=== PATIENT | male | born 1965 | race Caucasian/White ===

== ENCOUNTER 2018-01-17 05:17 | Inpatient (IN) | payer MEDICARE, OTHER ==
[~2018-01-17] VITALS: Ht 177.8 cm; Wt 112.5 kg
--- NOTE | 2018-01-17 05:19 | NUR ---
PT BIB [facility]. PER PT AND PAREMEDICS, PT WAS IN CAR ON WAY TO DIALYSIS, BUT WAS UNABLE TO GET OUT OF THE CAR, STATING HE FELT WEAK. THE PT THEN CALLED 911. PT PRESENTS W/ BLE WEAKNESS AND SWELLING.
--- NOTE | 2018-01-17 05:22 | NUR ---
DR ARNALDO FALCON MD AT BEDSIDE FOR MSE.
[2018-01-17] MEDS ORDERED: CARBIDOPA PO (05:42)
[2018-01-17] MEDS ORDERED: BUME2TAB3 PO (05:42)
[2018-01-17] MEDS ORDERED: AMIT10TA6 PO (05:42)
[2018-01-17] MEDS ORDERED: GUAI600T53 PO (05:42)
[2018-01-17] MEDS ORDERED: TOLV30TA PO (05:42)
--- NOTE | 2018-01-17 05:42 | NUR ---
PATIENT UNABLE TO RECALL ALL HOME MEDICATIONS AND DOSAGES AT THIS TIME
[2018-01-17 05:43] LABS: BASOPHILS # (AUTO) 0.1 K/uL (0.0-8.0); EOSINOPHILS # (AUTO) 0.1 K/uL (0.0-0.7); EOSINOPHILS % (AUTO) 0.8 % (0.0-7.0); HEMATOCRIT 25.4 % (36.7-47.1); HEMOGLOBIN 8.6 g/dL (12.5-16.3); LYMPHOCYTES # (AUTO) 0.3 K/uL (20.0-40.0); LYMPHOCYTES % (AUTO) 4.2 % (20.5-51.5); MEAN CORPUSCULAR HEMOGLOBIN 33.5 uug (23.8-33.4); MEAN CORPUSCULAR HGB CONC 34 g/dL (32.5-36.3); MONOCYTES # (AUTO) 0.7 K/uL (2.0-10.0); NEUTROPHILS # (AUTO) 5.5 K/uL (1.8-8.9); PLATELET COUNT (AUTO) 127 K/uL (152-348); RED BLOOD CELL COUNT(AUTO) 2.57 MIL/uL (4.06-5.63); WHITE BLOOD COUNT (AUTO) 6.5 K/uL (3.6-10.2)
[2018-01-17 05:57] LABS: BILIRUBIN,DIRECT 0.5 mg/dL (0.0-0.2); BILIRUBIN,TOTAL 1.4 mg/dL (0.2-1.0); CREATININE 6.7 mg/dL (0.6-1.3); TOTAL PROTEIN, SERUM 7.8 g/dL (6.4-8.2)
[2018-01-17 06:03] LABS: POTASSIUM 6.7 mmol/L (3.5-5.1)
--- NOTE | 2018-01-17 06:04 | NUR ---
[facility] PAGED FOR PANEL. WAS TOLD MARIYA SMITH WILL CALL BACK.
[2018-01-17] MEDS ORDERED: SODIUM BICARBONATE 8.4% 50 MEQ/50 ML DISP.SYRIN IV ONE ×2 (06:15→06:19)
[2018-01-17] MEDS ORDERED: CALCIUM GLUCONATE IV 1 GM in IV DEXTROSE 5% 50 ML IV ONE (06:15)
[2018-01-17] MEDS ORDERED: INSULIN REGULAR, HUMAN 300 UNIT/3 ML VIAL IV ONE (06:15)
[2018-01-17] MEDS ORDERED: SODIUM POLYSTYRENE SULFONATE 15 G/60 ML LIQUID UDC PO ONE (06:15)
[2018-01-17] MEDS ORDERED: SODIUM POLYSTYRENE SULFONATE 15 G/60 ML LIQUID UDC ONE (06:19)
[2018-01-17] MEDS ORDERED: CALCIUM GLUCONATE 1 GM/10 ML VIAL IV ONE (06:19)
[2018-01-17] MEDS ORDERED: INSULIN REGULAR, HUMAN 300 UNIT/3 ML VIAL ONE (06:20)
--- NOTE | 2018-01-17 06:30 | NUR ---
Dr. Carreno on panel call with Renae Perez NP.
[2018-01-17] MEDS ORDERED: MAGNESIUM HYDROXIDE 30 ML LIQUID UDC PO PRN (06:45)
[2018-01-17] MEDS ORDERED: ACETAMINOPHEN 325 MG TABLET PO PRN (06:45)
[2018-01-17] MEDS ORDERED: Z GUARD REMEDY PASTE 57 GM TUBE TOP PRN (06:45)
[2018-01-17] MEDS ORDERED: ENOXAPARIN SODIUM 30 MG/0.3 ML DISP.SYRIN SQ SCH (06:45)
[2018-01-17] MEDS ORDERED: ONDANSETRON 4 MG/2 ML VIAL IV PRN (06:45)
--- NOTE | 2018-01-17 07:17 | NUR ---
Recieved pt in bed. no c/o pain, SOB at this time.
[2018-01-17 07:27] LABS: CREATININE 6.9 mg/dL (0.6-1.3)
[2018-01-17 07:31] LABS: POTASSIUM 6.7 mmol/L (3.5-5.1)
--- NOTE | 2018-01-17 07:42 | NUR ---
Patient is resting comfortably in bed with eyes closed, NAD noted.
--- NOTE | 2018-01-17 08:05 | NUR ---
ADMITTED FROM ER VIA RNEY WITH ADM DX HYPERKALEMIA AND HYPONATREMIA, AWAKE ALERT AND APPROPRIATE RESPONSES, VERY WEAK LOOKING AND SOB ON EXERTION. PCO2 WITH ABG 63.1 O2 2L NC STARTED. JUNCTIONAL AT A RATE OF 48 WITH BUNDLE BRANCH ON MONITOR. HEMODIALYSIS STARTED WITH CLOSE MONITORING. HOSPITALIST IN AND NOTED LABS WILL FOLLOW-UP PATIENT. DR BRUNO IN THE CASE AND WANTS STAT CMP 2HRS POST HD.
[2018-01-17 08:15] VITALS: BP 96/46
[2018-01-17 09:17] LABS: ABG BASE EXCESS -3.4 mmol/L; ABG HCO3 21.3 mmol/L; ABG PH 7.379 (7.350-7.450); ABG PO2 63.1 mmHg (75.0-100.0); ABG SITE RIGHT RADIAL; ABG TOTAL HEMOGLOBIN 9.2 G/dL (13.5-18.0); COHb 2.2 % (0.5-1.5); MetHb 0.3 % (0.0-1.5); O2Hb 88.8 % (94.0-97.0); VENT MODE ROOM AIR
[2018-01-17 11:50] VITALS: BP 124/55
[2018-01-17] MEDS: PANTOPRAZOLE SODIUM 40 MG TABLET.DR PO SCH (13:16)
[2018-01-17] MEDS: HEPARIN SODIUM,PORCINE 5,000 UNITS/ML VIAL SQ SCH ×2 (13:17→21:00)
[2018-01-17 13:37] LABS: CREATININE 5.3 mg/dL (0.6-1.3); POTASSIUM 4.5 mmol/L (3.5-5.1)
[2018-01-17] MEDS: HYDROCODONE/APAP 5-325MG TABLET PO PRN ×2 (13:37→17:06)
[2018-01-17] MEDS: MIDODRINE HCL 2.5 MG TABLET PO SCH ×2 (13:38→21:00)
[2018-01-17 13:42] LABS: TOTAL PROTEIN, SERUM 7.3 g/dL (6.4-8.2)
--- NOTE | 2018-01-17 14:11 | NUR ---
WOUND CARE CONSULT: PT RELUCTANT TO HAVE BILATERAL COBAN DRESSINGS REMOVED AT THIS TIME. PT HAS DRY/INTACT COBAN DRESSINGS TO FEET. SIGNS OF PREVIOUS TOE AMPUTATIONS NOTED. PT IS AMBULATORY AND CONTINENT. RECOMMEND DPM CONSULT. PT STATES IS SEEN AT HOME BY WOUND P.A. WILL SEE PRN.
[2018-01-17] MEDS ORDERED: AMIO200T2 PO (15:12)
[2018-01-17] MEDS ORDERED: METO10TA8 PO (15:12)
[2018-01-17] MEDS ORDERED: ROSU20TA PO (15:18)
[2018-01-17] MEDS ORDERED: FOLI0.8T2 PO (15:18)
[2018-01-17] MEDS ORDERED: LEVO150T PO (15:18)
[2018-01-17] MEDS ORDERED: CARV3.122 PO (15:18)
[2018-01-17] MEDS ORDERED: ZONI25CA3 PO (15:45)
[2018-01-17] MEDS ORDERED: ROPI0.5T PO (15:45)
[2018-01-17] MEDS ORDERED: TRAM50TA2 PO (15:45)
[2018-01-17] MEDS ORDERED: GABA-534 PO (15:47)
[2018-01-17] MEDS ORDERED: MIDO10TA PO (15:47)
[2018-01-17] MEDS ORDERED: CALC667C6 PO (15:49)
[2018-01-17] MEDS ORDERED: VITA-85A PO (15:51)
[2018-01-17 16:00] VITALS: BP 113/53
[2018-01-17] MEDS ORDERED: ALLO100T PO (16:00)
[2018-01-17] MEDS ORDERED: LINA5TAB PO (16:00)
[2018-01-17] MEDS ORDERED: CARB-93 PO (16:12)
[2018-01-17] MEDS ORDERED: TRAMADOL HCL 50 MG TABLET PO PRN (17:45)
[2018-01-17] MEDS ORDERED: ZONISAMIDE 25 MG PO PRN (17:45)
--- NOTE | 2018-01-17 17:56 | NUR ---
SEEN BY DR TAYLOR FOR WOUND CONSULT AND DR FINN FOR CARDIOLOGY CONSULT PLS SEE NOTES
[2018-01-17 19:36] VITALS: BP 113/50
--- NOTE | 2018-01-17 19:45 | NUR ---
PT RECEIVED RESTING IN BED. NO COMPLAINTS AT THIS TIME. PT REPORT RECEIVED.
[2018-01-17] MEDS: DOCUSATE SODIUM 100 MG CAPSULE PO SCH (20:55)
[2018-01-17] MEDS: CARBIDOPA/LEVODOPA 25-100MG TABLET PO SCH (20:55)
[2018-01-17] MEDS: HYDROCODONE/APAP 10-325 MG TABLET PO PRN (20:56)
--- NOTE | 2018-01-17 21:09 | NUR ---
HEPARIN WAS NOT ADMINISTERED DUE TO LOW PLATELET COUNT.
[2018-01-17] MEDS: ropiniROLE 0.5 MG TABLET PO PRN (21:30)
[2018-01-17 23:34] VITALS: BP 112/51
--- NOTE | 2018-01-17 23:47 | NUR ---
NO WOUND PHOTOS TAKEN. PT REFUSED TO REMOVE WOUND DRESSING, REQUESTS TO WAIT UNTIL WOUND MD SEES HIM. BILATERAL FEET STILL WRAPPED IN COBAND. NO DRAINAGE OR ODOR NOTED AT THIS TIME. UPON VISUAL INSPECTION, SECOND DIGIT ON LEFT FOOT MISSING. Addendum: 01/18/18 at 0229 by YANET REYNOLDS RN SECOND AND THIRD DIGITS ON LEFT FOOT AMPUTATED.
[2018-01-18] MEDS ORDERED: BUDESONIDE 0.25 MG/2 ML NEBU NEB PRN
[2018-01-18] MEDS: HYDROCODONE/APAP 10-325 MG TABLET PO PRN ×5 (02:18→20:48)
[2018-01-18] MEDS ORDERED: ALBUTEROL SULFATE 2.5 MG/ 0.5 ML NEBU NEB PRN (02:45)
[2018-01-18] MEDS ORDERED: IPRATROPIUM BROMIDE 0.5 MG/2.5 ML NEBU NEB PRN (02:45)
[2018-01-18 03:37] VITALS: BP 118/55
[2018-01-18] MEDS: MIDODRINE HCL 2.5 MG TABLET PO SCH ×4 (05:10→22:00)
[2018-01-18] MEDS: ropiniROLE 0.5 MG TABLET PO PRN ×4 (05:13→23:40)
[2018-01-18] MEDS: PANTOPRAZOLE SODIUM 40 MG TABLET.DR PO SCH (06:16)
[2018-01-18] MEDS: LEVOTHYROXINE SODIUM 150 MCG TABLET PO SCH (06:16)
--- NOTE | 2018-01-18 06:30 | NUR ---
HD NURSE ARRIVED. PT STABLE AT THIS TIME. HD NURSE WITH PATIENT
--- NOTE | 2018-01-18 07:37 | NUR ---
Received report from outgoing nurse. Patient resting in bed sleeping. Currently receiving Hemodialysis. No apparent distress.
[2018-01-18 07:54] LABS: BASOPHILS % (AUTO) 1.4 % (0.0-2.0); EOSINOPHILS # (AUTO) 0.1 K/uL (0.0-0.7); EOSINOPHILS % (AUTO) 2.1 % (0.0-7.0); HEMATOCRIT 22.6 % (36.7-47.1); HEMOGLOBIN 7.7 g/dL (12.5-16.3); LYMPHOCYTES # (AUTO) 0.2 K/uL (20.0-40.0); LYMPHOCYTES % (AUTO) 5.5 % (20.5-51.5); MEAN CORPUSCULAR HEMOGLOBIN 33.8 uug (23.8-33.4); MEAN CORPUSCULAR HGB CONC 34 g/dL (32.5-36.3); MEAN CORPUSCULAR VOLUME 99.3 fL (73.0-96.2); MONOCYTES # (AUTO) 0.4 K/uL (2.0-10.0); MONOCYTES % (AUTO) 13.2 % (0.0-11.0); NEUTROPHILS # (AUTO) 2.2 K/uL (1.8-8.9); NEUTROPHILS % (AUTO) 77.8 % (38.5-71.5); PLATELET COUNT (AUTO) 104 K/uL (152-348); WHITE BLOOD COUNT (AUTO) 2.9 K/uL (3.6-10.2)
[2018-01-18 08:10] LABS: RED BLOOD CELL COUNT(AUTO) 2.27 MIL/uL (4.06-5.63)
[2018-01-18 08:33] LABS: THYROID STIMULATING HORMONE 0.341 mIU/mL (0.358-3.740)
[2018-01-18 08:45] LABS: CREATININE 5.5 mg/dL (0.6-1.3); MAGNESIUM 1.9 mg/dL (1.8-2.4); PHOSPHOROUS 4.8 mg/dL (2.5-4.9); POTASSIUM 3.6 mmol/L (3.5-5.1)
[2018-01-18] MEDS ORDERED: TOLVAPTAN 30 MG PO SCH (09:00)
--- NOTE | 2018-01-18 09:15 | NUR ---
Hemodialysis completed at 9:30am. Patient had 5000mls of fluids removed. VS stable. In no distress.
[2018-01-18] MEDS: FOLIC ACID/VITAMIN B COMP W-C TABLET PO SCH (09:45)
[2018-01-18] MEDS: CARVEDILOL 3.125 MG TABLET PO SCH ×2 (09:45→16:50)
[2018-01-18] MEDS: GABAPENTIN 300 MG CAPSULE PO SCH (09:46)
[2018-01-18] MEDS: CALCIUM ACETATE 667 MG CAPSULE PO SCH ×2 (09:46→16:47)
[2018-01-18] MEDS: ASPIRIN EC 81 MG TABLET.DR PO SCH (09:46)
[2018-01-18] MEDS: LINAGLIPTIN 5 MG TABLET PO SCH (09:46)
[2018-01-18] MEDS: AMIODARONE HCL 200 MG TABLET PO SCH (09:47)
[2018-01-18] MEDS: ALLOPURINOL 100 MG TABLET PO SCH (09:47)
[2018-01-18] MEDS: HEPARIN SODIUM,PORCINE 5,000 UNITS/ML VIAL SQ SCH ×2 (09:50→19:59)
[2018-01-18 09:58] LABS: NEUTROPHILS % (MANUAL) 78 % (42-75)
[2018-01-18 09:59] LABS: EOSINOPHILS % (MANUAL) 2 % (0-8); LYMPHOCYTES % (MANUAL) 7 % (20-40); MONOCYTES % (MANUAL) 13 % (2-10)
--- NOTE | 2018-01-18 11:00 | NUR ---
Patient complaied of pain. Pain medication administered and effective. No distress noted.
[2018-01-18 11:27] LABS: *BLOOD, URINE Trace-intact (NEGATIVE); *CLARITY,URINE CLEAR (CLEAR); *COLOR,URINE YELLOW (YELLOW); *KETONES,URINE 1+ (NEGATIVE); *PROTEIN,URINE 1+ (NEGATIVE); *UROBILINOGEN,URINE 0.2 E.U./dl (NORMAL); LEUKOCYTE ESTERASE ,URINE NEGATIVE (NEGATIVE); NITRITE, URINE NEGATIVE (NEGATIVE); PH,URINE 5.5 (5.0-8.0); UGLUCOSE NEGATIVE (NEGATIVE)
[2018-01-18 11:32] VITALS: BP 110/53
[2018-01-18 11:36] LABS: *BILIRUBIN,URIN 2+ (NEGATIVE)
[2018-01-18 11:38] LABS: BACTERIA,URINE FEW /HPF (NONE SEEN); RBC,URINE NONE SEEN /HPF (0-3); SQUAMOUS EPITHELIAL CELL,UR FEW /HPF (NONE SEEN)
--- NOTE | 2018-01-18 12:00 | NUR ---
Patient requested Requip for restless legs in anticipation of wound care. In good spirits and asking questions about his care.
[2018-01-18] MEDS: VITAMIN B COMPLEX 1 TABLET PO SCH (13:56)
[2018-01-18 15:41] VITALS: BP 113/60
[2018-01-18 15:51] LABS: BILIRUBIN,DIRECT 0.2 mg/dL (0.0-0.2); BILIRUBIN,TOTAL 0.5 mg/dL (0.2-1.0)
[2018-01-18] MEDS: SODIUM HYPOCHLORITE 0.125% 473 ML BOTTLE TP SCH (16:45)
[2018-01-18] MEDS: BUMETANIDE 1 MG TABLET PO SCH (16:47)
--- NOTE | 2018-01-18 16:56 | NUR ---
Pain medication administered. Wound care provided with the assistance of wound care nurse. Medication effective in managing pain during wound care. All wounds photographed. Patient resting in bed in no distress
[2018-01-18] MEDS ORDERED: PATIENT MAY USE OWN MED- MD OK XX SCH (17:00)
[2018-01-18 18:36] LABS: HEMATOCRIT 24.6 % (36.7-47.1); HEMOGLOBIN 8.2 g/dL (12.5-16.3)
[2018-01-18 19:00] VITALS: BP 109/46
[2018-01-18] MEDS: DOCUSATE SODIUM 100 MG CAPSULE PO SCH (20:00)
[2018-01-18] MEDS: CARBIDOPA/LEVODOPA 25-100MG TABLET PO SCH (20:00)
[2018-01-18] MEDS: MUPIROCIN 2% OINT 22 GM TUBE TP SCH (20:00)
[2018-01-18] MEDS ORDERED: BENZONATATE 100 MG CAPSULE PO ONE (21:30)
[2018-01-19] MEDS: HYDROCODONE/APAP 10-325 MG TABLET PO PRN ×5 (01:03→22:03)
[2018-01-19 04:00] VITALS: BP 118/56
[2018-01-19] MEDS: LEVOTHYROXINE SODIUM 150 MCG TABLET PO SCH (06:19)
[2018-01-19] MEDS: PANTOPRAZOLE SODIUM 40 MG TABLET.DR PO SCH (06:19)
[2018-01-19] MEDS: ropiniROLE 0.5 MG TABLET PO PRN ×3 (06:19→23:27)
[2018-01-19 06:50] LABS: BASOPHILS # (AUTO) 0.1 K/uL (0.0-8.0); BASOPHILS % (AUTO) 2.2 % (0.0-2.0); EOSINOPHILS # (AUTO) 0.1 K/uL (0.0-0.7); EOSINOPHILS % (AUTO) 4.1 % (0.0-7.0); HEMATOCRIT 23.3 % (36.7-47.1); HEMOGLOBIN 7.9 g/dL (12.5-16.3); LYMPHOCYTES # (AUTO) 0.3 K/uL (20.0-40.0); LYMPHOCYTES % (AUTO) 12.1 % (20.5-51.5); MEAN CORPUSCULAR HEMOGLOBIN 33.7 uug (23.8-33.4); MEAN CORPUSCULAR HGB CONC 34 g/dL (32.5-36.3); MEAN CORPUSCULAR VOLUME 99.8 fL (73.0-96.2); MONOCYTES # (AUTO) 0.4 K/uL (2.0-10.0); MONOCYTES % (AUTO) 18.5 % (0.0-11.0); NEUTROPHILS # (AUTO) 1.5 K/uL (1.8-8.9); NEUTROPHILS % (AUTO) 63.1 % (38.5-71.5); PLATELET COUNT (AUTO) 98 K/uL (152-348); WHITE BLOOD COUNT (AUTO) 2.4 K/uL (3.6-10.2)
[2018-01-19 06:53] LABS: RED BLOOD CELL COUNT(AUTO) 2.33 MIL/uL (4.06-5.63)
[2018-01-19] MEDS: MIDODRINE HCL 2.5 MG TABLET PO SCH ×3 (07:00→23:29)
[2018-01-19 07:03] LABS: BILIRUBIN,DIRECT 0.2 mg/dL (0.0-0.2); BILIRUBIN,TOTAL 0.7 mg/dL (0.2-1.0); CREATININE 4.4 mg/dL (0.6-1.3); POTASSIUM 3.5 mmol/L (3.5-5.1); TOTAL PROTEIN, SERUM 7.1 g/dL (6.4-8.2)
--- NOTE | 2018-01-19 07:20 | NUR ---
RECEIVED REPORT FROM ASSISTANT PRESSMAN NURSE, PATIENT IN BED AWAKE, NO DISTRESS NOTED, BED IN LOW POSITION, SIDE RAILS UP X2.
[2018-01-19 08:58] LABS: NEUTROPHILS % (MANUAL) 0 % (42-75)
[2018-01-19] MEDS: FOLIC ACID/VITAMIN B COMP W-C TABLET PO SCH (08:58)
[2018-01-19] MEDS: LINAGLIPTIN 5 MG TABLET PO SCH (08:58)
[2018-01-19] MEDS: ALLOPURINOL 100 MG TABLET PO SCH (08:58)
[2018-01-19] MEDS: CALCIUM ACETATE 667 MG CAPSULE PO SCH ×2 (08:59→17:06)
[2018-01-19] MEDS: ASPIRIN EC 81 MG TABLET.DR PO SCH (08:59)
[2018-01-19] MEDS: BENZONATATE 100 MG CAPSULE PO SCH ×3 (08:59→17:06)
[2018-01-19] MEDS: GABAPENTIN 300 MG CAPSULE PO SCH (09:00)
[2018-01-19] MEDS: BUMETANIDE 1 MG TABLET PO SCH ×2 (09:00→17:06)
[2018-01-19] MEDS: VITAMIN B COMPLEX 1 TABLET PO SCH (09:00)
[2018-01-19] MEDS: AMIODARONE HCL 200 MG TABLET PO SCH (09:01)
[2018-01-19] MEDS: HEPARIN SODIUM,PORCINE 5,000 UNITS/ML VIAL SQ SCH ×2 (09:01→21:00)
[2018-01-19] MEDS: MUPIROCIN 2% OINT 22 GM TUBE TP SCH ×2 (09:03→21:00)
[2018-01-19] MEDS: SODIUM HYPOCHLORITE 0.125% 473 ML BOTTLE TP SCH (09:03)
[2018-01-19 09:44] LABS: *OCCULT BLOOD STOOL NEGATIVE (NEGATIVE)
[2018-01-19 11:35] VITALS: BP 123/48
[2018-01-19 11:38] VITALS: BP 123/52
[2018-01-19] MEDS ORDERED: VANCOMYCIN IV 1,750 MG in IV DEXTROSE 5% 500 ML IV ONE (13:00)
--- NOTE | 2018-01-19 13:39 | NUR ---
Clinical Pharmacy Note: Vancomycin Pharmacy to Dose Subjective: To start vancomycin in this 52 y/o male on hemodialysis for indication of empiric therapy (no MD note yet) Objective; weight 116kg height 177cm BUN 34 Scr 4.4 (on HD) Wbc 2.4 temp 98.2 Assessment/Plan As patient is on hemodialysis, will follow HD dosing protocol. Will dose one time of 1750mg vanco today at 1300 (no prior dose given). Will follow HD dosing for further dosing. Will follow
[2018-01-19 16:33] VITALS: BP 126/65
--- NOTE | 2018-01-19 18:33 | NUR ---
PATIENT HAS BEEN COOPERATIVE WITH CARE. PATIENT UNDERWENT DIALYSIS AND REMOVED 5L OF FLUID. CURRENTLY PATIENT IN BED, NO DISTRESS NOTED, BED IN LOW POSITION, SIDE RAILS UP X2.
[2018-01-19 19:00] VITALS: BP 107/53
--- NOTE | 2018-01-19 19:00 | NUR ---
Received patient awake, sitting at the edge of bed, eating his dinner. Denies any pain/discomforts at this time. no s/s of respiratory distress noted. Bilateral LE dressing dry and intact. Continue care as planned.
[2018-01-19] MEDS ORDERED: MORPHINE SULFATE 4 MG/1 ML DISP.SYRIN IV PRN (20:45)
[2018-01-19] MEDS ORDERED: MORPHINE SULFATE 4 MG/1 ML DISP.SYRIN ONE (21:14)
[2018-01-19] MEDS ORDERED: MORPHINE SULFATE 2 MG/1 ML DISP.SYRIN IV ONE (21:15)
[2018-01-19] MEDS: DOCUSATE SODIUM 100 MG CAPSULE PO SCH (22:00)
[2018-01-19] MEDS: CARBIDOPA/LEVODOPA 25-100MG TABLET PO SCH (22:00)
--- NOTE | 2018-01-19 22:10 | NUR ---
Dr. Sevilla here and performed bilateral foot ulcer debridement after premedicating patient with Morphine 3mg IVP, tolerated procedure well. Left heel wound culture obtained and sent to lab as ordered.
[2018-01-20] MEDS: HYDROCODONE/APAP 10-325 MG TABLET PO PRN ×4 (03:28→21:02)
[2018-01-20 04:00] VITALS: BP 134/68
--- NOTE | 2018-01-20 05:17 | NUR ---
Shift end report; Vs stable. Slept in between care. S/p bilateral foot ulcers debridement tolerated well. Wound care done as ordered. Medicated twice with [place] and Morphine once with relief. No further complaint presented. All needs attended and met. No significant event reported all night. Continue current plan of care.
--- NOTE | 2018-01-20 06:00 | NUR ---
HD in progress.
[2018-01-20] MEDS: ropiniROLE 0.5 MG TABLET PO PRN ×3 (06:01→23:00)
[2018-01-20 06:03] LABS: BASOPHILS # (AUTO) 0.1 K/uL (0.0-8.0); EOSINOPHILS # (AUTO) 0.1 K/uL (0.0-0.7); EOSINOPHILS % (AUTO) 5.2 % (0.0-7.0); HEMATOCRIT 24.5 % (36.7-47.1); HEMOGLOBIN 8.3 g/dL (12.5-16.3); LYMPHOCYTES # (AUTO) 0.3 K/uL (20.0-40.0); LYMPHOCYTES % (AUTO) 10.4 % (20.5-51.5); MEAN CORPUSCULAR HEMOGLOBIN 33.7 uug (23.8-33.4); MEAN CORPUSCULAR HGB CONC 34 g/dL (32.5-36.3); MEAN CORPUSCULAR VOLUME 99.6 fL (73.0-96.2); MONOCYTES # (AUTO) 0.5 K/uL (2.0-10.0); MONOCYTES % (AUTO) 16.6 % (0.0-11.0); NEUTROPHILS # (AUTO) 1.9 K/uL (1.8-8.9); NEUTROPHILS % (AUTO) 65.8 % (38.5-71.5); PLATELET COUNT (AUTO) 109 K/uL (152-348); WHITE BLOOD COUNT (AUTO) 2.8 K/uL (3.6-10.2)
[2018-01-20 06:06] LABS: RED BLOOD CELL COUNT(AUTO) 2.47 MIL/uL (4.06-5.63)
[2018-01-20 06:07] LABS: CREATININE 3.6 mg/dL (0.6-1.3); POTASSIUM 3.8 mmol/L (3.5-5.1)
[2018-01-20 06:11] LABS: NEUTROPHILS % (MANUAL) 0 % (42-75)
[2018-01-20] MEDS: MIDODRINE HCL 2.5 MG TABLET PO SCH ×3 (06:18→22:00)
[2018-01-20] MEDS: LEVOTHYROXINE SODIUM 150 MCG TABLET PO SCH (07:46)
[2018-01-20] MEDS: PANTOPRAZOLE SODIUM 40 MG TABLET.DR PO SCH (07:46)
[2018-01-20] MEDS: FLUTICASONE/VILANTEROL 1 EACH BLST.W.DEV INH SCH (09:00)
[2018-01-20] MEDS: BUMETANIDE 1 MG TABLET PO SCH ×2 (09:21→17:48)
[2018-01-20] MEDS: FOLIC ACID/VITAMIN B COMP W-C TABLET PO SCH (09:21)
[2018-01-20] MEDS: LINAGLIPTIN 5 MG TABLET PO SCH (09:21)
[2018-01-20] MEDS: GABAPENTIN 300 MG CAPSULE PO SCH (09:22)
[2018-01-20] MEDS: ALLOPURINOL 100 MG TABLET PO SCH (09:22)
[2018-01-20] MEDS: AMIODARONE HCL 200 MG TABLET PO SCH (09:22)
[2018-01-20] MEDS: BENZONATATE 100 MG CAPSULE PO SCH ×3 (09:22→17:48)
[2018-01-20] MEDS: CALCIUM ACETATE 667 MG CAPSULE PO SCH ×2 (09:22→17:48)
[2018-01-20] MEDS: ASPIRIN EC 81 MG TABLET.DR PO SCH (09:22)
[2018-01-20] MEDS: VITAMIN B COMPLEX 1 TABLET PO SCH (09:23)
[2018-01-20] MEDS: HEPARIN SODIUM,PORCINE 5,000 UNITS/ML VIAL SQ SCH ×2 (09:23→21:00)
[2018-01-20] MEDS: SODIUM HYPOCHLORITE 0.125% 473 ML BOTTLE TP SCH (09:24)
[2018-01-20] MEDS: MUPIROCIN 2% OINT 22 GM TUBE TP SCH ×2 (09:25→21:18)
[2018-01-20 11:45] VITALS: BP 117/57
--- NOTE | 2018-01-20 14:36 | NUR ---
Clinical Pharmacy Note: Vancomycin Pharmacy to Dose Subjective: To continue vancomycin in this 52 y/o male on hemodialysis for indication of empiric therapy. Patient felt unwell at Dr. office Objective; weight 116kg height 177cm BUN 26 Scr 3.6 (on HD) Wbc 2.8 temp 97.9 pre-hd level: 24.2 Assessment/Plan As patient is on hemodialysis, will follow HD dosing protocol. Last dosed one time of 1750mg vanco 01/19 at 1300. Pt had HD today, No dose today based on pre-HD level. Will follow Hd schedule for further dosing.
[2018-01-20 16:05] VITALS: BP 101/46
--- NOTE | 2018-01-20 19:38 | NUR ---
1900 PT RECEIVED, VSS. PT AMBULATING IN [facility]. PT COMPLIANT WITH CARE. 2100 MEDS PASSED. PT REFUSED MEDICATION. PT VERBALIZED UNDERSTANDING THE RISKS AND BENEFITS OF MED REFUSAL. Addendum: 01/21/18 at 0347 by Pilar Smith RN 2300 PT ASLEEP 0100 PT RESTLESS, WANTS A SNACK. 0300 PT ASLEEP Addendum: 01/21/18 at 1958 by Pilar Smith RN 0500 PT ASLEEP 0700 REPORT GIVEN TO DAY SHIFT NURSE. PT VERBALIZED UNDERSTANDING PLAN OF CARE.
[2018-01-20] MEDS ORDERED: LEVOFLOXACIN 250 MG TABLET PO SCH (20:30)
[2018-01-20] MEDS: DOCUSATE SODIUM 100 MG CAPSULE PO SCH (21:00)
[2018-01-20] MEDS: CARBIDOPA/LEVODOPA 25-100MG TABLET PO SCH (21:01)
--- NOTE | 2018-01-20 21:14 | NUR ---
CLINICAL PHARMACY NOTE :GENTAMICIN DOSING Request for Gentamicin dosing on 53 y/o male 5'10" 262lbs dialysis patient for cellulitis Temp 97.8 BUN 26 Scr 3.6 WBC 2.8 Give Gentamicin 240mg IVPB x 1. Order gentamicin level after dialysis Addendum: 01/20/18 at 2128 by YANET KIRK CHANGE INITIAL DOSE TO 180MG
[2018-01-20] MEDS ORDERED: GENTAMICIN SULFATE IV ONE ×2 (21:15→21:45)
[2018-01-20] MEDS ORDERED: DEXTROSE 5% IV ONE ×2 (21:15→21:45)
[2018-01-20] MEDS ORDERED: DEXTROSE 5% IV SCH (21:30)
[2018-01-20] MEDS ORDERED: GENTAMICIN SULFATE IV SCH (21:30)
[2018-01-20] MEDS ORDERED: GENTAMICIN SULFATE INJ 140 MG in IV DEXTROSE 5% 100 ML IV ONE (21:45)
[2018-01-21] MEDS: HYDROCODONE/APAP 10-325 MG TABLET PO PRN ×6 (01:04→21:54)
[2018-01-21] MEDS: ropiniROLE 0.5 MG TABLET PO PRN ×4 (02:46→23:02)
[2018-01-21 04:00] VITALS: BP 120/61
[2018-01-21 06:51] LABS: BASOPHILS # (AUTO) 0.1 K/uL (0.0-8.0); EOSINOPHILS # (AUTO) 0.2 K/uL (0.0-0.7); EOSINOPHILS % (AUTO) 4.4 % (0.0-7.0); HEMATOCRIT 26.9 % (36.7-47.1); LYMPHOCYTES # (AUTO) 0.5 K/uL (20.0-40.0); LYMPHOCYTES % (AUTO) 11.8 % (20.5-51.5); MEAN CORPUSCULAR HEMOGLOBIN 33.1 uug (23.8-33.4); MEAN CORPUSCULAR HGB CONC 34 g/dL (32.5-36.3); MEAN CORPUSCULAR VOLUME 98.7 fL (73.0-96.2); MONOCYTES # (AUTO) 0.7 K/uL (2.0-10.0); MONOCYTES % (AUTO) 16.3 % (0.0-11.0); NEUTROPHILS # (AUTO) 2.7 K/uL (1.8-8.9); NEUTROPHILS % (AUTO) 65.5 % (38.5-71.5); PLATELET COUNT (AUTO) 121 K/uL (152-348); RED BLOOD CELL COUNT(AUTO) 2.72 MIL/uL (4.06-5.63); WHITE BLOOD COUNT (AUTO) 4.1 K/uL (3.6-10.2)
[2018-01-21] MEDS: MIDODRINE HCL 2.5 MG TABLET PO SCH ×3 (07:03→21:56)
[2018-01-21] MEDS: LEVOTHYROXINE SODIUM 150 MCG TABLET PO SCH (07:03)
[2018-01-21] MEDS: PANTOPRAZOLE SODIUM 40 MG TABLET.DR PO SCH (07:03)
[2018-01-21 07:04] LABS: CREATININE 4.7 mg/dL (0.6-1.3); POTASSIUM 4.1 mmol/L (3.5-5.1)
--- NOTE | 2018-01-21 07:10 | NUR ---
RECEIVED PATIENT IN ROOM, AWAKE, A AND O X 4. NO ACUTE DISTRESS NOTED. WITH IV ACCESS ON THE RIGHT FOREARM # 20, SALINE LOCK, INTACT AND PATENT, AND AV FISTULA ON THE LEFT FOREARM. LEFT FOREARM PRECS OBSERVED AT ALL TIMES. SCHEDULED FOR DIALYSIS TODAY, PER FIELD SOFTWARE ENGINEER RN. WOUND DRESSINGS INTACT ON BOTH FEET. COMFORT MEASURES PROVIDED. CALL LIGHT WITHIN REACH. WILL CONTINUE TO MONITOR FERNANDEZLEY.
[2018-01-21 07:59] LABS: BASOPHILS % (MANUAL) 1 % (0-2); EOSINOPHILS % (MANUAL) 7 % (0-8); LYMPHOCYTES % (MANUAL) 12 % (20-40); MONOCYTES % (MANUAL) 14 % (2-10); NEUTROPHILS % (MANUAL) 66 % (42-75)
[2018-01-21] MEDS: LINAGLIPTIN 5 MG TABLET PO SCH (08:02)
[2018-01-21] MEDS: ASPIRIN EC 81 MG TABLET.DR PO SCH (08:02)
[2018-01-21] MEDS: FOLIC ACID/VITAMIN B COMP W-C TABLET PO SCH (08:02)
[2018-01-21] MEDS: BENZONATATE 100 MG CAPSULE PO SCH ×3 (08:02→17:50)
[2018-01-21] MEDS: VITAMIN B COMPLEX 1 TABLET PO SCH (08:03)
[2018-01-21] MEDS: ALLOPURINOL 100 MG TABLET PO SCH (08:03)
[2018-01-21] MEDS: CALCIUM ACETATE 667 MG CAPSULE PO SCH ×2 (08:03→17:50)
[2018-01-21] MEDS: GABAPENTIN 300 MG CAPSULE PO SCH (08:03)
[2018-01-21] MEDS: BUMETANIDE 1 MG TABLET PO SCH ×2 (08:03→17:49)
[2018-01-21] MEDS: HEPARIN SODIUM,PORCINE 5,000 UNITS/ML VIAL SQ SCH ×2 (08:07→21:00)
[2018-01-21] MEDS: AMIODARONE HCL 200 MG TABLET PO SCH (08:11)
[2018-01-21] MEDS: SODIUM HYPOCHLORITE 0.125% 473 ML BOTTLE TP SCH (09:52)
--- NOTE | 2018-01-21 11:00 | NUR ---
SEEN AND ASSESSED BY DR. OAKES (SURGERY). WOUND DRESSING AND TREATMENT DONE ON BOTH FEET BY MD, WELL TOLERATED. WOUNDS ARE IMPROVING. AEDUCATED TO OFFLOAD BOTH HEALS TO PREVENT PRESSURE ULCERS.
[2018-01-21 11:15] VITALS: BP 109/53
[2018-01-21] MEDS: FLUTICASONE/VILANTEROL 1 EACH BLST.W.DEV INH SCH (11:19)
[2018-01-21] MEDS: MUPIROCIN 2% OINT 22 GM TUBE TP SCH ×2 (11:19→21:56)
--- NOTE | 2018-01-21 11:35 | NUR ---
Clinical Pharmacy Note: Vancomycin Pharmacy to Dose Subjective: To continue vancomycin in this 52 y/o male on hemodialysis for indication of cellulitis Objective; weight 116kg height 177cm BUN 36 Scr 4.7(on HD) Wbc 4.1 temp 98.2 pre-hd level: 22.2 Assessment/Plan As patient is on hemodialysis, will follow HD dosing protocol. Last dosed one time of 1750mg vanco 01/19 at 1300. Pt had HD today, No dose today based on pre-HD level. Will follow Hd schedule for further dosing.
[2018-01-21] MEDS ORDERED: EPOETIN ALFA 10,000 UNITS/ML VIAL IV ONE (14:45)
--- NOTE | 2018-01-21 14:45 | NUR ---
PATIENT CURRENTLY ON HD
[2018-01-21 15:22] VITALS: BP 117/57
--- NOTE | 2018-01-21 17:48 | NUR ---
HD DONE, 6L OUT POST HD BP 127/63 MN 86. WILL CONTINUE TO MONITOR.
[2018-01-21 19:00] VITALS: BP 110/61
--- NOTE | 2018-01-21 20:20 | NUR ---
RECEIVED SHIFT REPORT FROM GENO KERR. PT SITTING IN BED, NO COMPLAINTS AT THIS TIME. PT IS STABLE.
[2018-01-21] MEDS ORDERED: DEXTROSE 5% IV SCH (21:30)
[2018-01-21] MEDS ORDERED: GENTAMICIN SULFATE IV SCH (21:30)
[2018-01-21] MEDS: DOCUSATE SODIUM 100 MG CAPSULE PO SCH (21:54)
[2018-01-21] MEDS: CARBIDOPA/LEVODOPA 25-100MG TABLET PO SCH (21:54)
[2018-01-21] MEDS: CEFEPIME HCL 1 G in IV DEXTROSE 5% 50 ML IV SCH (21:55)
[2018-01-22] MEDS: HYDROCODONE/APAP 10-325 MG TABLET PO PRN ×5 (02:20→21:13)
[2018-01-22 04:26] VITALS: BP 116/67
[2018-01-22] MEDS: MIDODRINE HCL 2.5 MG TABLET PO SCH ×3 (05:59→21:12)
[2018-01-22] MEDS: ropiniROLE 0.5 MG TABLET PO PRN ×3 (05:59→19:32)
[2018-01-22] MEDS: PANTOPRAZOLE SODIUM 40 MG TABLET.DR PO SCH (06:00)
[2018-01-22] MEDS: LEVOTHYROXINE SODIUM 150 MCG TABLET PO SCH (06:00)
[2018-01-22 06:48] LABS: CREATININE 4.5 mg/dL (0.6-1.3); PHOSPHOROUS 4.1 mg/dL (2.5-4.9); POTASSIUM 4.7 mmol/L (3.5-5.1)
--- NOTE | 2018-01-22 08:00 | NUR ---
patient complained of pain on his L foot with a pain scale of 10. hydrocodone given. reassessed pain, pain scale of 1. pain treatment effective.
[2018-01-22] MEDS: FOLIC ACID/VITAMIN B COMP W-C TABLET PO SCH (08:06)
[2018-01-22] MEDS: ALLOPURINOL 100 MG TABLET PO SCH (08:06)
[2018-01-22] MEDS: BENZONATATE 100 MG CAPSULE PO SCH ×3 (08:07→16:34)
[2018-01-22] MEDS: LINAGLIPTIN 5 MG TABLET PO SCH (08:07)
[2018-01-22] MEDS: ASPIRIN EC 81 MG TABLET.DR PO SCH (08:07)
[2018-01-22] MEDS: BUMETANIDE 1 MG TABLET PO SCH ×2 (08:07→16:34)
[2018-01-22] MEDS: CALCIUM ACETATE 667 MG CAPSULE PO SCH ×2 (08:08→16:34)
[2018-01-22] MEDS: GABAPENTIN 300 MG CAPSULE PO SCH (08:09)
[2018-01-22 08:12] LABS: BASOPHILS # (AUTO) 0.1 K/uL (0.0-8.0); BASOPHILS % (AUTO) 1.4 % (0.0-2.0); EOSINOPHILS # (AUTO) 0.1 K/uL (0.0-0.7); EOSINOPHILS % (AUTO) 3.2 % (0.0-7.0); HEMATOCRIT 26.7 % (36.7-47.1); HEMOGLOBIN 8.8 g/dL (12.5-16.3); LYMPHOCYTES # (AUTO) 0.4 K/uL (20.0-40.0); LYMPHOCYTES % (AUTO) 8.6 % (20.5-51.5); MEAN CORPUSCULAR HEMOGLOBIN 32.2 uug (23.8-33.4); MEAN CORPUSCULAR HGB CONC 33 g/dL (32.5-36.3); MEAN CORPUSCULAR VOLUME 98.1 fL (73.0-96.2); MONOCYTES # (AUTO) 0.7 K/uL (2.0-10.0); NEUTROPHILS # (AUTO) 3.2 K/uL (1.8-8.9); NEUTROPHILS % (AUTO) 71.8 % (38.5-71.5); PLATELET COUNT (AUTO) 107 K/uL (152-348); RED BLOOD CELL COUNT(AUTO) 2.72 MIL/uL (4.06-5.63); WHITE BLOOD COUNT (AUTO) 4.5 K/uL (3.6-10.2)
[2018-01-22] MEDS: HEPARIN SODIUM,PORCINE 5,000 UNITS/ML VIAL SQ SCH ×2 (08:16→20:41)
[2018-01-22] MEDS: AMIODARONE HCL 200 MG TABLET PO SCH (08:18)
[2018-01-22] MEDS: FLUTICASONE/VILANTEROL 1 EACH BLST.W.DEV INH SCH (08:19)
[2018-01-22] MEDS: VITAMIN B COMPLEX 1 TABLET PO SCH (08:19)
[2018-01-22] MEDS: SODIUM HYPOCHLORITE 0.125% 473 ML BOTTLE TP SCH (08:20)
[2018-01-22 09:31] LABS: BAND % (MANUAL) 1 % (0-10); BASOPHILS % (MANUAL) 1 % (0-2); EOSINOPHILS % (MANUAL) 5 % (0-8); LYMPHOCYTES % (MANUAL) 9 % (20-40); MONOCYTES % (MANUAL) 15 % (2-10); NEUTROPHILS % (MANUAL) 69 % (42-75)
--- NOTE | 2018-01-22 10:00 | NUR ---
seen and examined by Jensen Cox DPM
--- NOTE | 2018-01-22 11:00 | NUR ---
seen and examined by Maxim LINDER.
[2018-01-22 11:39] VITALS: BP 117/57
[2018-01-22] MEDS: MUPIROCIN 2% OINT 22 GM TUBE TP SCH ×2 (11:41→21:12)
[2018-01-22 15:27] VITALS: BP 137/73
[2018-01-22 19:00] VITALS: BP 149/71
--- NOTE | 2018-01-22 19:15 | NUR ---
RECEIVED PT AWAKE, ALERT AND ORIIENTEDX4. PT SHOWS NO SIGNS OF DISTRESS. PT IV INTACT AND PATENT. CALL LIGHT WITHIN REACH, BED ALARM ON, LOW POSITION AND SIDE RAILS UPX2. WILL CONTINUE TO MONITOR.
[2018-01-22] MEDS: CEFEPIME HCL 1 G in IV DEXTROSE 5% 50 ML IV SCH (20:30)
[2018-01-22] MEDS: DOCUSATE SODIUM 100 MG CAPSULE PO SCH (21:11)
[2018-01-22] MEDS: CARBIDOPA/LEVODOPA 25-100MG TABLET PO SCH (21:11)
--- NOTE | 2018-01-22 21:25 | NUR ---
PT REFUSED HIS HEPARIN MEDICATION. HE SAID HE WILL JUST HAVE THE AM HEPARIN. HE SAID ITS HURTING HIM.
--- NOTE | 2018-01-22 23:00 | NUR ---
PT COMPLAINING OF HIS IV SITE, HE WANTS ME TO TAKE IT OFF. PT IV TAKEN OFF. SAFETY AND COMFORT PROVIDED. WILL CONTINUE TO MONITOR.
[2018-01-23] MEDS: HYDROCODONE/APAP 10-325 MG TABLET PO PRN ×4 (01:18→13:10)
[2018-01-23 04:00] VITALS: BP 124/66
[2018-01-23] MEDS: ropiniROLE 0.5 MG TABLET PO PRN (04:04)
--- NOTE | 2018-01-23 06:26 | NUR ---
PT SLEPT INTERMITTENTLY. PT SHOWS NO SIGNS F DISTRESS. PT HAVE NO IV. PT REFUSED TO PUT AN IV . HE SAID HE WILL WAIT FOR THE PICC LINE.PRESCRIBED MEDICATION GIVEN AND PT TOLERATED IT WELL. SAFETY AND COMFORT PROVIDED.WILL ENDORSE TO DAYSHIFT NURSE.
[2018-01-23] MEDS: PANTOPRAZOLE SODIUM 40 MG TABLET.DR PO SCH (06:33)
[2018-01-23] MEDS: MIDODRINE HCL 2.5 MG TABLET PO SCH ×2 (06:33→13:10)
[2018-01-23] MEDS: LEVOTHYROXINE SODIUM 150 MCG TABLET PO SCH (06:33)
--- NOTE | 2018-01-23 07:40 | NUR ---
PATIENT IS AWAKE ALERT AND ORIENTED X4 SITTING UP ON HIS BED AT THIS TIME WITH NO S/S OF PAIN OR DISCOMFORTS AT THIS TIME PATIENT STATED THAT HE IS MOST LIKELY GOING HOME TODAY.LEFT FOOT WITH DRESSINGS INTACT WITH 2ND AND 3RD TOES MISSING LEFT AND RIGHT HEELS WITH WOUNDS AND DRESSINGS INTACT MADE COMFORTABLE AWAITING FOR FUTHER ORDERS
[2018-01-23] MEDS: HEPARIN SODIUM,PORCINE 5,000 UNITS/ML VIAL SQ SCH (09:00)
[2018-01-23] MEDS: ALLOPURINOL 100 MG TABLET PO SCH (09:07)
[2018-01-23] MEDS: GABAPENTIN 300 MG CAPSULE PO SCH (09:07)
[2018-01-23] MEDS: LINAGLIPTIN 5 MG TABLET PO SCH (09:07)
[2018-01-23] MEDS: BUMETANIDE 1 MG TABLET PO SCH (09:07)
[2018-01-23] MEDS: BENZONATATE 100 MG CAPSULE PO SCH ×2 (09:07→13:05)
[2018-01-23] MEDS: FOLIC ACID/VITAMIN B COMP W-C TABLET PO SCH (09:07)
[2018-01-23] MEDS: ASPIRIN EC 81 MG TABLET.DR PO SCH (09:07)
[2018-01-23] MEDS: CALCIUM ACETATE 667 MG CAPSULE PO SCH (09:07)
[2018-01-23] MEDS: VITAMIN B COMPLEX 1 TABLET PO SCH (09:08)
[2018-01-23] MEDS: AMIODARONE HCL 200 MG TABLET PO SCH (09:08)
[2018-01-23] MEDS: FLUTICASONE/VILANTEROL 1 EACH BLST.W.DEV INH SCH (09:08)
[2018-01-23] MEDS: MUPIROCIN 2% OINT 22 GM TUBE TP SCH (09:09)
[2018-01-23] MEDS: SODIUM HYPOCHLORITE 0.125% 473 ML BOTTLE TP SCH (09:10)
--- NOTE | 2018-01-23 10:51 | NUR ---
PATIENT IS BEING PREPPED FRO DISCHARGE AWAITING FOR PICC LINE INSERTION AND DISCHARGE ORDERS.
[2018-01-23 11:56] VITALS: BP 122/58
--- NOTE | 2018-01-23 12:30 | NUR ---
ATTEMPTED TO TAKE PICTURES AND CHANGE HIS WOUND DRESSINGS PATIENT REFUSED TO HAVE PICTURES TAKEN CALLED AND NOTIFIED THE [facility] FOR HIS MEDICATIONS INSTRUCTIONS.
[2018-01-23] MEDS ORDERED: CEFE1FRO IV (12:43)
[2018-01-23] MEDS: CEFEPIME HCL 1 G in IV DEXTROSE 5% 50 ML IV SCH (12:52)
--- NOTE | 2018-01-23 12:58 | NUR ---
PICC LINE DOUBLE LUMEN INSERTED TO HIS RIGHT FOREARM AND DR CAREY STATED TO GIVE THE ROCEPHIN NOW EVEN THOUGH ITS DUE AT 2100 BASED ON THE FACT THAT PATIENT IS BEING DISCHARGED AND WILL NOT BE SEEN BY THE HOME HEALTH UNTIL TOMORROW.
--- NOTE | 2018-01-23 13:00 | NUR ---
PER THE PICC LINE NURSE SHE INSERTED 46 CM WITH 2CM OUT RIGHT BASILIC VEIN CONFIRMED BY THE CXR.
--- NOTE | 2018-01-23 13:41 | NUR ---
PATIENT DISCHARGED WITH DISCHARGE INSTRUCTIONS AND ALL OF HIS PERSONAL BELONGINGS PATIENT INSTRUCTED TO CONTINUE WITH IV ANTIBIOTICS/DIALYSIS AND WOUND CARE CHANGES ORDERED AND PATIENT EXPRESSED UNDERSTANDING.
== END 2018-01-23 13:47 | disposition home health service (06) | DRG 622 ==
LOC: ER 05:21 → TELE 07:45 → MED 01-18 19:01
PROVIDERS: ADMIT Registered Nurse; ATTEND Registered Nurse
PROC: 5A1D70Z Performance of Urinary Filtration, Intermittent, Less than 6 Hours Per Day (ICD-10-PCS; 2018-01-17)
PROC: 5A1D70Z Performance of Urinary Filtration, Intermittent, Less than 6 Hours Per Day (ICD-10-PCS; 2018-01-18)
PROC: 0JBR0ZZ Excision of Left Foot Subcutaneous Tissue and Fascia, Open Approach (ICD-10-PCS; principal; 2018-01-19)
PROC: 0JBQ0ZZ Excision of Right Foot Subcutaneous Tissue and Fascia, Open Approach (ICD-10-PCS; 2018-01-19)
PROC: 5A1D70Z Performance of Urinary Filtration, Intermittent, Less than 6 Hours Per Day (ICD-10-PCS; 2018-01-19)
PROC: 5A1D70Z Performance of Urinary Filtration, Intermittent, Less than 6 Hours Per Day (ICD-10-PCS; 2018-01-20)
PROC: 5A1D70Z Performance of Urinary Filtration, Intermittent, Less than 6 Hours Per Day (ICD-10-PCS; 2018-01-21)
PROC: 5A1D70Z Performance of Urinary Filtration, Intermittent, Less than 6 Hours Per Day (ICD-10-PCS; 2018-01-22)
PROC: 02HV33Z Insertion of Infusion Device into Superior Vena Cava, Percutaneous Approach (ICD-10-PCS; 2018-01-23)
PROC: B548ZZA Ultrasonography of Superior Vena Cava, Guidance (ICD-10-PCS; 2018-01-23)
DX: E11.621 Type 2 diabetes mellitus with foot ulcer (principal); I50.33 Acute on chronic diastolic (congestive) heart failure; I13.2 Hypertensive heart and chronic kidney disease with heart failure and with stage 5 chronic kidney disease, or end stage renal disease; E87.1 Hypo-osmolality and hyponatremia; L03.115 Cellulitis of right lower limb; L03.116 Cellulitis of left lower limb; L97.429 Non-pressure chronic ulcer of left heel and midfoot with unspecified severity; L97.419 Non-pressure chronic ulcer of right heel and midfoot with unspecified severity; K80.10 Calculus of gallbladder with chronic cholecystitis without obstruction; N18.6 End stage renal disease; E11.22 Type 2 diabetes mellitus with diabetic chronic kidney disease; E11.42 Type 2 diabetes mellitus with diabetic polyneuropathy; E87.5 Hyperkalemia; I27.20 Pulmonary hypertension, unspecified; Z99.2 Dependence on renal dialysis; J44.9 Chronic obstructive pulmonary disease, unspecified; I48.0 Paroxysmal atrial fibrillation; Z87.891 Personal history of nicotine dependence; D53.9 Nutritional anemia, unspecified; R74.0 Nonspecific elevation of levels of transaminase and lactic acid dehydrogenase [LDH]; I25.10 Atherosclerotic heart disease of native coronary artery without angina pectoris; Z95.1 Presence of aortocoronary bypass graft; R00.1 Bradycardia, unspecified; L97.529 Non-pressure chronic ulcer of other part of left foot with unspecified severity; Z89.422 Acquired absence of other left toe(s); I87.2 Venous insufficiency (chronic) (peripheral); Z91.19 Patient's noncompliance with other medical treatment and regimen; R53.1 Weakness; I25.2 Old myocardial infarction; D17.79 Benign lipomatous neoplasm of other sites; E66.01 Morbid (severe) obesity due to excess calories; Z68.35 Body mass index [BMI] 35.0-35.9, adult; B96.5 Pseudomonas (aeruginosa) (mallei) (pseudomallei) as the cause of diseases classified elsewhere; B95.61 Methicillin susceptible Staphylococcus aureus infection as the cause of diseases classified elsewhere; B96.89 Other specified bacterial agents as the cause of diseases classified elsewhere
CPT/HCPCS: 36415; 36600; 71045; 73630; 76604; 82533; 82746; 83550; 83735; 84100; 84443; 85018; 85025; 86592; 87070; 87077; 87086; 90937; 93005; 93307; 94640; 94664; A4217; A4663; C1751; J0610; J0692; J0885; J1580; J1644; J1815; J2270; J3370; J3490; J3590; J7040; J7060; J8499